=== PATIENT | female | born 1950 ===

== ENCOUNTER 2021-10-13 07:00 | Day surgery (SDC) | payer OTHER ==
[~2021-10-13] VITALS: Ht 160 cm; Wt 61.2 kg
[2021-10-13] MEDS ORDERED: PERCOCET 5-3251 EACH PO (14:49)
== END 2021-10-13 17:20 | disposition home or self-care (01) ==
LOC: CIR.AMB 07:00
PROVIDERS: ATTEND Surgery
DX: D35.1 Benign neoplasm of parathyroid gland (principal); E21.0 Primary hyperparathyroidism; Z20.822 Contact with and (suspected) exposure to COVID-19; Z88.0 Allergy status to penicillin; I10 Essential (primary) hypertension; Z86.16 Personal history of COVID-19; E83.52 Hypercalcemia